=== PATIENT | female | born 1990 | race Caucasian/White ===

== ENCOUNTER 2019-04-06 15:47 | Observation (INO) | payer OTHER ==
[2019-04-06 17:32] LABS: BLOOD UREA NITROGEN,BUN 7 mg/dL (7.0-18.0); CARBON DIOXIDE,CO2 23.9 mmol/L (21.0-32.0); CHLORIDE,CL 101 mmol/L (98-107); GLUCOSE RANDOM 90 mg/dL (74-106); POTASSIUM,K 4.1 mmol/L (3.5-5.1); SODIUM,NA 136 mmol/L (136-145)
[2019-04-06] MEDS ORDERED: cefTRIAXone 1 GM in Lidocaine 1% 4 ML IM ONE (18:05)
[2019-04-06] MEDS ORDERED: cefTRIAXone 1 GM in Sodium Chloride 0.9% 50 ML IV ONE ×2 (19:05→19:30)
[2019-04-06] MEDS ORDERED: Sodium Chloride 0.9% 10 ML Syringe FLUSH PRN (19:12)
[2019-04-06] MEDS ORDERED: Sodium Chloride 0.9% 10 ML SDV IV PRN (19:12)
[2019-04-06] MEDS ORDERED: Sodium Chloride 0.9% 2.5 ML Syringe FLUSH PRN (19:12)
[2019-04-06] MEDS ORDERED: Sodium Chloride 0.9% 250 ML IV SCH (19:15)
== END 2019-04-06 21:08 | disposition home or self-care (01) ==
LOC: MW.OB 15:47
PROVIDERS: ADMIT Obstetrics & Gynecology; ATTEND Obstetrics & Gynecology
DX: O99.89 Other specified diseases and conditions complicating pregnancy, childbirth and the puerperium (principal); R50.9 Fever, unspecified; R10.13 Epigastric pain
CPT/HCPCS: 36415; 59025; 80048; 81001; 85025; 87086; 87804; J0696; J7050

== ENCOUNTER 2019-07-14 07:36 | Inpatient (IN) | payer OTHER ==
[2019-07-14] MEDS ORDERED: Sodium Chloride 0.9% 2.5 ML Syringe FLUSH PRN (09:47)
[2019-07-14] MEDS ORDERED: Misoprostol 200 MCG Tab PO PRN (09:47)
[2019-07-14] MEDS ORDERED: Nalbuphine 10 MG/1 ML Vial IVPUSH PRN (09:47)
[2019-07-14] MEDS ORDERED: Lidocaine 1% 50 ML MDV INJECT PRN (09:47)
[2019-07-14] MEDS ORDERED: Tranexamic Acid 1,000 MG in Sodium Chloride 0.9% 100 ML IV PRN (09:47)
[2019-07-14] MEDS ORDERED: Water For Irrigation,Sterile 1,000 ML Container IRR PRN (09:47)
[2019-07-14] MEDS ORDERED: Methylergonovine 0.2 MG/1 ML Amp IM PRN (09:47)
[2019-07-14] MEDS ORDERED: Sodium Chloride 0.9% 10 ML Syringe FLUSH PRN (09:47)
[2019-07-14] MEDS ORDERED: Sodium Chloride 0.9% 10 ML SDV IV PRN (09:47)
[2019-07-14] MEDS ORDERED: Butorphanol 1 MG/ML SDV IVPUSH PRN (09:47)
[2019-07-14] MEDS ORDERED: Carboprost Tromethamine 250 MCG/1 ML Amp IM PRN (09:47)
[2019-07-14] MEDS ORDERED: Oxytocin/0.9 % Sodium Chloride 30 UNIT/500 ML BAG IV SCH ×2 (10:00→20:30)
[2019-07-14 17:28] LABS: BLOOD UREA NITROGEN,BUN 9 mg/dL (7.0-18.0); CHLORIDE,CL 100 mmol/L (98-107); GLUCOSE RANDOM 104 mg/dL (74-106); POTASSIUM,K 3.6 mmol/L (3.5-5.1); SODIUM,NA 133 mmol/L (136-145)
[2019-07-14] MEDS: Lactated Ringers 1,000 ML IV SCH ×3 (18:35→20:12)
[2019-07-14] MEDS ORDERED: fentaNYL 100 MCG/2 ML SDV ONE (19:23)
[2019-07-14] MEDS ORDERED: Ropivacaine 0.2% PF 2 MG/ML 20 ML SDV ONE (19:23)
[2019-07-14] MEDS ORDERED: Ropivacaine HCl/PF 100 ML ONE (19:23)
--- NOTE | 2019-07-14 20:46 | PCM.PREANE ---
Preanesthetic Assessment - Procedure Proposed Procedure: RENÉE - Anesthesia/Transfusion/Family Hx Anesthesia History: Prior Anesthesia Without Reaction Family History of Anesthesia Reaction: No Transfusion History: No Prior Transfusion(s) Intubation History: Unknown - Review of Systems General: No Symptoms Pulmonary: No Symptoms Cardiovascular: No Symptoms Gastrointestinal: Other (REFLUX) Neurological: No Symptoms Other: Reports: None - Physical Assessment NPO Status Time: 19:00 (Clear Liquids) Height: 1.68 m Weight: 73.482 kg ASA Class: 2 Mental Status: Alert & Oriented x3 Airway Class: Mallampati = 2 Dentition: Reports: Normal Dentition Thyro-Mental Finger Breadths: 3 Mouth Opening Finger Breadths: 3 ROM/Head Extension: Full Lungs: Clear to Auscultation Cardiovascular: Regular Rate - Lab Values: Laboratory Last Values WBC 19.20 K/uL (4.0-11.0) H 07/14/19 16:58 RBC 4.84 M/uL (4.30-5.90) 07/14/19 16:58 Hgb 14.1 g/dL (12.0-16.0) 07/14/19 16:58 Hct 41.3 % (36.0-46.0) 07/14/19 16:58 MCV 85.3 fL (80.0-98.0) 07/14/19 16:58 MCH 29.1 pg (27.0-32.0) 07/14/19 16:58 MCHC 34.1 g/dL (31.0-37.0) 07/14/19 16:58 RDW Std Deviation 43.1 fl (28.0-62.0) 07/14/19 16:58 RDW Coeff of Celi 14 % (11.0-15.0) 07/14/19 16:58 Plt Count 148 K/uL (150-400) L 07/14/19 16:58 MPV 10.90 fL (7.40-12.00) 07/14/19 16:58 Neutrophils % (Manual) 87 % (48.0-80.0) H 07/14/19 16:58 Lymphocytes % (Manual) 9 % (16.0-40.0) L 07/14/19 16:58 Monocytes % (Manual) 4 % (0.0-15.0) 07/14/19 16:58 Nucleated RBC % 0.0 /100WBC 07/14/19 16:58 Absolute Seg Neuts 16.7 (1.4-5.7) H 07/14/19 16:58 Lymphocytes # (Manual) 1.7 (0.6-2.4) 07/14/19 16:58 Monocytes # (Manual) 0.8 (0.0-0.8) 07/14/19 16:58 Nucleated RBCs # 0 K/uL 07/14/19 10:15 Sodium 133 mmol/L (136-145) L 07/14/19 16:58 Potassium 3.6 mmol/L (3.5-5.1) 07/14/19 16:58 Chloride 100 mmol/L (98-107) 07/14/19 16:58 Carbon Dioxide 20.0 mmol/L (21.0-32.0) L 07/14/19 16:58 BUN 9 mg/dL (7.0-18.0) 07/14/19 16:58 Creatinine 0.7 mg/dL (0.6-1.0) 07/14/19 16:58 Est Cr Clr Drug Dosing 113.01 mL/min 07/14/19 16:58 Estimated GFR (MDRD) > 60.0 ml/min 07/14/19 16:58 Glucose 104 mg/dL (74-106) 07/14/19 16:58 Uric Acid 5.7 mg/dL (2.6-7.2) 07/14/19 16:58 Calcium 8.8 mg/dL (8.5-10.1) 07/14/19 16:58 Total Bilirubin 0.4 mg/dL (0.2-1.0) 07/14/19 16:58 AST 21 IU/L (15-37) 07/14/19 16:58 ALT 21 IU/L (14-63) 07/14/19 16:58 Alkaline Phosphatase 142 U/L (46-116) H 07/14/19 16:58 Total Protein 6.5 g/dL (6.4-8.2) 07/14/19 16:58 Albumin 2.9 g/dL (3.4-5.0) L 07/14/19 16:58 Globulin 3.6 g/dL (2.6-4.0) 07/14/19 16:58 Albumin/Globulin Ratio 0.8 (0.9-1.6) L 07/14/19 16:58 Membrane Rupture POSITIVE 07/14/19 08:15 Blood Type O NEGATIVE 07/14/19 10:15 Antibody Screen NEGATIVE 07/14/19 10:15 - Allergies Allergies/Adverse Reactions: Allergies Allergy/AdvReac Type Severity Reaction Status Date / Time Penicillins Allergy Other Verified 07/14/19 09:51 - Blood Blood Available: No Product(s) Available: None - Anesthesia Plan Pre-Op Medication Ordered: None - Acknowledgements Anesthesia Type Planned: Epidural Pt an Appropriate Candidate for the Planned Anesthesia: Yes Alternatives and Risks of Anesthesia Discussed w Pt/Guardian: Yes Pt/Guardian Understands and Agrees with Anesthesia Plan: Yes Additional Comments: Discussed. ? answered. Permit signed. Wishes to proceed. PreAnesthesia Questionnaire - Past Health History Medical/Surgical History: Denies Medical/Surgical History MANAGER TERMINAL History: Reports: Musculoskeletal History: Reports: Other (See Below) Other Musculoskeletal History: Torn ligiment in foot. Right knee dislocation - Past Surgical History HEENT Surgical History: Reports: Other (See Below) Other HEENT Surgeries/Procedures: tooth extraction - SUBSTANCE USE Smoking Status *Q: Former Smoker Tobacco Use Within Last Twelve Months: No Second Hand Smoke Exposure: No Recreational Drug Use History: No - CURRENT (IN HOUSE) MEDS Current Meds: Current Medications Butorphanol Tartrate (Stadol) 1 mg IVPUSH Q1H PRN PRN Reason: Pain Carboprost Tromethamine (Hemabate Ds) 250 mcg IM ASDIRECTED PRN PRN Reason: Post Hemorrhage Tranexamic Acid 1,000 mg/ (Sodium Chloride) 110 mls @ 660 mls/hr IV ONETIME PRN PRN Reason: Bleeding Lactated Ringer's (Ringers, Lactated) 1,000 mls @ 150 mls/hr IV ASDIRECTED FABY Last Admin: 07/14/19 20:12 Dose: 150 mls/hr Oxytocin/Sodium Chloride (Oxytocin 30 Unit/500 Ml-Ns) 30 unit in 500 mls @ 999 mls/hr IV TITRATE FABY Oxytocin/Sodium Chloride (Oxytocin 30 Unit/500 Ml-Ns) 30 unit in 500 mls @ 2 mls/hr IV TITRATE FABY; Protocol Last Infusion: 07/14/19 20:39 Dose: 4 munits/min, 4 mls/hr Lidocaine HCl (Xylocaine 1%) 50 ml INJECT ONETIME PRN PRN Reason: Laceration repair Methylergonovine Maleate (Methergine) 0.2 mg IM ASDIRECTED PRN PRN Reason: Post Hemorrhage Misoprostol (Cytotec) 200 mcg PO ONETIME PRN PRN Reason: Post Hemorrhage Nalbuphine HCl (Nubain) 10 mg IVPUSH Q1H PRN PRN Reason: Pain (severe 7-10) Sodium Chloride (Saline Flush) 10 ml FLUSH ASDIRECTED PRN PRN Reason: Keep Vein Open Sodium Chloride (Saline Flush) 2.5 ml FLUSH ASDIRECTED PRN PRN Reason: Keep Vein Open Sodium Chloride (Normal Saline) 10 ml IV ASDIRECTED PRN PRN Reason: IV Use Sterile Water (Sterile Water For Irrigation) 1,000 ml IRR ASDIRECTED PRN PRN Reason: delivery Discontinued Medications Fentanyl (Sublimaze) Confirm Administered Dose 100 mcg .ROUTE .STK-MED ONE Stop: 07/14/19 19:24 Ropivacaine (Naropin 0.2%) Confirm Administered Dose 100 mls @ as directed .ROUTE .STK-MED ONE Stop: 07/14/19 19:24 Ropivacaine (Naropin 0.2%) Confirm Administered Dose 20 ml .ROUTE .STK-MED ONE Stop: 07/14/19 19:24
--- NOTE | 2019-07-14 20:52 | PCM.SN.2 ---
- Free Text/Narrative Note: Requested for RENÉE on 40+3 in active labor. Chart reviewed, discussed, ? answered, permit signed, wishes to proceed. Epidural at L3-4 on first pass. Test dose NEGATIVE. Excellent analgesia post bolus. Placed on infusion/bolus. Tolerated well. No issues noted post.
--- NOTE | 2019-07-15 01:01 | PCM.SN.2 ---
- Free Text/Narrative Note: Excellent analgesia. Pump issues, line air malfxn. System reset and system flushed. Function resumed.
[2019-07-15] MEDS ORDERED: Ibuprofen 400 MG Tab PO PRN (01:24)
[2019-07-15] MEDS ORDERED: Bisacodyl 10 MG Supp RECTAL PRN (01:24)
[2019-07-15] MEDS ORDERED: Acetaminophen 500 MG Tab PO PRN ×2 (01:24)
[2019-07-15] MEDS ORDERED: Docusate Sodium 100 MG Cap PO PRN (01:24)
[2019-07-15] MEDS ORDERED: Witch Hazel Medicated Pads 40/Jar TOP PRN (01:24)
[2019-07-15] MEDS ORDERED: Aluminum Hydroxide/Magnesium Hydroxide/Simethicone Susp 30 ML Cup PO PRN (01:24)
[2019-07-15] MEDS ORDERED: oxyCODONE 5 MG Tab PO PRN (01:24)
[2019-07-15] MEDS ORDERED: Ondansetron 4 MG/2 ML SDV IVPUSH PRN (01:24)
[2019-07-15] MEDS ORDERED: Ibuprofen 800 MG Tab PO PRN (01:24)
[2019-07-15] MEDS ORDERED: Lanolin 100% Cream 7 GM Tube TOP PRN (01:24)
--- NOTE | 2019-07-15 01:30 | PCM.OPNOTE ---
- General Post-Op/Procedure Note Date of Surgery/Procedure: 07/15/19 Operative Procedure(s): /2nd MLL repaired Findings: Viable female APGARs 8, 8 weight pending. Spontaneous delivery intact placenta with 3V cord. Thick meconium stained amniotic fluid Pre Op Diagnosis: 40/4 week IUP. SROM Post-Op Diagnosis: Same Anesthesia Technique: Epidural EBL in mLs: 300 Complications: none known Condition: Good Free Text/Narrative:: Dictation [id number]
--- NOTE | 2019-07-15 02:02 | OR ---
SURGEON: Kaylin Meza M.D. DATE OF PROCEDURE: 07/15/2019 PREOPERATIVE DIAGNOSES: 1. 40 and 4-week intrauterine . 2. Spontaneous rupture of membranes. POSTOPERATIVE DIAGNOSES: 1. 40 and 4-week intrauterine . 2. Spontaneous rupture of membranes. PROCEDURES: 1. Spontaneous vaginal delivery. 2. Second-degree midline laceration repair. PRIMARY SURGEON: Kaylin Meza M.D. ANESTHESIA: Epidural. ESTIMATED BLOOD LOSS: 300 mL. COMPLICATIONS: None known. FINDINGS: Viable female. scores 8 at 1 minute and 8 at 5 minutes. Weight is pending. Spontaneous delivery, intact placenta, 3-vessel cord, thick meconium stained amniotic fluid. DISPOSITION: Infant nursery, mom in LDRP, stable. PROCEDURE DETAILS: Caitlin is a 29-year-old, G1, P0, at 40-3/7 weeks' gestational age in presentation on the morning of 07/14/2019, after spontaneous rupture of membranes. Clear fluid initially noted. She is group B beta strep negative. She was monitored throughout the morning and afternoon. When there was no evidence of active labor, she did agree to Pitocin augmentation by the early evening. We initiated this. Contractions became more regular. She became increasingly uncomfortable, underwent regional anesthesia in the form of epidural. I assumed care shortly after 6 p.m. heart tones 120s with variability. The patient underwent epidural, became more comfortable. Shortly thereafter was found to be 5 cm, and continued to progress nicely through the evening hours. Once complete, she began pushing efforts, pushed nicely to a +2 station. I was called for delivery. Upon my arrival, the patient was placed in modified dorsal lithotomy position, was prepped and draped using the aseptic manner. During her pushing efforts, it was noted that there was meconium-stained fluid. Therefore, Respiratory Therapy was also present for delivery. The patient continued with pushing efforts, pushed readily to a +4 station, followed by delivery of infant's head atraumatically and spontaneously followed by anterior shoulder, posterior shoulder, and remainder of the body without difficulty. The 's oropharynx and nares were bulb suctioned. The was handed off to her mother with attending nursing staff at the side. After a delay, cord was clamped x2 and cut. Cord arterial, cord venous, cord blood sampling obtained. Light pressure was applied. The placenta was delivered spontaneously intact. Vigorous fundal uterine massage was then applied. The uterus involuted nicely while 30 units of Pitocin was delivered in 500 mL of IV fluid. Upon inspection of cervix, vaginal sidewall, and perineum, there was found to be a second-degree midline laceration with first-degree bilateral sulci lacerations, repaired using 3-0 Vicryl in continuous running fashion, and the second degree in the usual fashion. Hemostasis appeared evident. The uterus did remain firm. Sponge count, instrument count, needle count was correct. The patient will remain in LDRP. to nursery. FELIPE / KALEN /[id number]
[2019-07-15] MEDS: Benzocaine/Menthol 20%-0.5% Spray 78 GM Cannister TOP PRN (02:58)
--- NOTE | 2019-07-15 07:47 | PCM48HPAN ---
Post Anesthesia Note - EVALUATION WITHIN 48HRS OF ANESTHETIC Vital Signs in Normal Range: Yes Patient Participated in Evaluation: Yes Respiratory Function Stable: Yes Airway Patent: Yes Cardiovascular Function Stable: Yes Hydration Status Stable: Yes Pain Control Satisfactory: Yes Nausea and Vomiting Control Satisfactory: Yes Mental Status Recovered: Yes - COMMENTS/OBSERVATIONS Free Text/Narrative:: Doing well. No problems noted post.
--- NOTE | 2019-07-16 06:20 | PCM.PNPP ---
- General Info Date of Service: 07/16/19 Subjective Update: 29yo P1 s/p PPD1 Functional Status: Reports: Pain Controlled, Tolerating Diet, Ambulating, Urinating - Review of Systems General: Reports: No Symptoms HEENT: Reports: No Symptoms Pulmonary: Reports: No Symptoms Cardiovascular: Reports: No Symptoms Gastrointestinal: Reports: No Symptoms Genitourinary: Reports: No Symptoms Musculoskeletal: Reports: No Symptoms Skin: Reports: No Symptoms Neurological: Reports: No Symptoms Psychiatric: Reports: No Symptoms - General Info Date of Service: 07/16/19 - Patient Data Vital Signs - Most Recent: Last Vital Signs Temp 36.2 C 07/16/19 05:02 Pulse 74 07/16/19 05:02 Resp 17 07/16/19 05:02 BP 131/85 07/16/19 05:02 Pulse Ox 96 07/16/19 05:02 Weight - Most Recent: 73.482 kg I&O - Last 24 Hours: Intake & Output 07/15/19 07/15/19 07/16/19 14:59 22:59 06:59 Intake Total 2 Balance 2 Lab Results - Last 24 Hours: Laboratory Results - last 24 hr 07/15/19 Range/Units 02:08 Screen NEGATIVE (NEGATIVE) RhIG Candidate? YES Rhogam Indicated YES, BABY RH POS H Med Orders - Current: Current Medications Acetaminophen (Tylenol Extra Strength) 500 mg PO Q4H PRN PRN Reason: Pain Acetaminophen (Tylenol Extra Strength) 1,000 mg PO Q4H PRN PRN Reason: Pain Al Hydroxide/Mg Hydroxide (Mag-Al Plus) 30 ml PO Q8H PRN PRN Reason: Heartburn Benzocaine/Menthol (Dermoplast Pain Relief 20%-0.5% [place]) 78 gm TOP ASDIRECTED PRN PRN Reason: Perineal Comfort Measure Last Admin: 07/15/19 02:58 Dose: 1 can Bisacodyl (Dulcolax) 10 mg RECTAL ONETIME PRN PRN Reason: Constipation Carboprost Tromethamine (Hemabate Ds) 250 mcg IM ASDIRECTED PRN PRN Reason: Post Hemorrhage Docusate Sodium (Colace) 100 mg PO BID PRN PRN Reason: Constipation Last Admin: 07/16/19 04:27 Dose: 100 mg Emollient Ointment (Lansinoh Hpa) 0 gm TOP ASDIRECTED PRN PRN Reason: Sore Nipples Last Admin: 07/15/19 02:57 Dose: 1 tub Tranexamic Acid 1,000 mg/ (Sodium Chloride) 110 mls @ 660 mls/hr IV ONETIME PRN PRN Reason: Bleeding Lactated Ringer's (Ringers, Lactated) 1,000 mls @ 150 mls/hr IV ASDIRECTED FABY Last Admin: 07/14/19 20:12 Dose: 150 mls/hr Oxytocin/Sodium Chloride (Oxytocin 30 Unit/500 Ml-Ns) 30 unit in 500 mls @ 999 mls/hr IV TITRATE FABY Oxytocin/Sodium Chloride (Oxytocin 30 Unit/500 Ml-Ns) 30 unit in 500 mls @ 2 mls/hr IV TITRATE FABY; Protocol Last Infusion: 07/14/19 21:30 Dose: 6 munits/min, 6 mls/hr Ibuprofen (Motrin) 400 mg PO Q4H PRN PRN Reason: Pain Ibuprofen (Motrin) 800 mg PO Q6H PRN PRN Reason: Pain Last Admin: 07/15/19 02:58 Dose: 800 mg Lidocaine HCl (Xylocaine 1%) 50 ml INJECT ONETIME PRN PRN Reason: Laceration repair Methylergonovine Maleate (Methergine) 0.2 mg IM ASDIRECTED PRN PRN Reason: Post Hemorrhage Ondansetron HCl (Zofran) 4 mg IVPUSH Q6H PRN PRN Reason: Nausea/Vomiting Oxycodone HCl (Oxycodone) 5 mg PO Q2H PRN PRN Reason: Pain Sodium Chloride (Saline Flush) 10 ml FLUSH ASDIRECTED PRN PRN Reason: Keep Vein Open Sodium Chloride (Saline Flush) 2.5 ml FLUSH ASDIRECTED PRN PRN Reason: Keep Vein Open Sodium Chloride (Normal Saline) 10 ml IV ASDIRECTED PRN PRN Reason: IV Use Sterile Water (Sterile Water For Irrigation) 1,000 ml IRR ASDIRECTED PRN PRN Reason: delivery Last Admin: 07/15/19 03:00 Dose: 1,000 ml Witch Negra (Tucks) 1 pad TOP ASDIRECTED PRN PRN Reason: comfort care Last Admin: 07/15/19 02:58 Dose: 1 tub Discontinued Medications Butorphanol Tartrate (Stadol) 1 mg IVPUSH Q1H PRN PRN Reason: Pain Fentanyl (Sublimaze) Confirm Administered Dose 100 mcg .ROUTE .STK-MED ONE Stop: 07/14/19 19:24 Ropivacaine (Naropin 0.2%) Confirm Administered Dose 100 mls @ as directed .ROUTE .STK-MED ONE Stop: 07/14/19 19:24 Misoprostol (Cytotec) 200 mcg PO ONETIME PRN PRN Reason: Post Hemorrhage Nalbuphine HCl (Nubain) 10 mg IVPUSH Q1H PRN PRN Reason: Pain (severe 7-10) Ropivacaine (Naropin 0.2%) Confirm Administered Dose 20 ml .ROUTE .STK-MED ONE Stop: 07/14/19 19:24 - Infant Interaction Support Person: - Recovery Exam Fundal Tone: Firm Fundal Level: 2 Fingerbreadths Below Umbilicus Fundal Placement: Midline Lochia Amount: Scant Lochia Color: Rubra/Red Perineum Description: Intact, Minimal Bruising/Swelling Episiotomy/Laceration: Approximated Bladder Status: Voiding - Exam General: Alert HEENT: Pupils Equal Neck: Supple Lungs: Clear to Auscultation Cardiovascular: Regular Rate, Regular Rhythm GI/Abdominal Exam: Normal Bowel Sounds Extremities: Normal Inspection Neurological: No New Focal Deficit Psy/Mental Status: Alert - Problem List & Annotations (1) Vaginal delivery SNOMED Code(s): 461012137 Code(s): O80 - ENCOUNTER FOR FULL-TERM UNCOMPLICATED DELIVERY Status: Acute Current Visit: Yes - Problem List Review Problem List Initiated/Reviewed/Updated: Yes - My Orders Last 24 Hours: My Active Orders 07/16/19 05:51 CBC WITH MANUAL DIFF [HEME] Routine - Assessment Assessment:: 29yo P1 s/p PPD 1 , normal lochia , - Plan Plan:: Routine Discharge home today
[2019-07-16] MEDS: Benzocaine/Menthol 20%-0.5% Spray 78 GM Cannister TOP PRN (09:46)
== END 2019-07-16 11:10 | disposition home or self-care (01) | DRG 807 ==
LOC: MW.OBCHECK 07:36 → MW.OB 07:37 → MW.OBCHECK 08:50 → OBSVTOIN 07-15 00:58 → MW.OB 07-15 06:00
PROVIDERS: ADMIT Obstetrics & Gynecology; ATTEND Obstetrics & Gynecology
PROC: 10E0XZZ Delivery of Products of Conception, External Approach (ICD-10-PCS; principal; 2019-07-15)
PROC: 0KQM0ZZ Repair Perineum Muscle, Open Approach (ICD-10-PCS; 2019-07-15)
PROC: 3E0R3BZ Introduction of Anesthetic Agent into Spinal Canal, Percutaneous Approach (ICD-10-PCS; 2019-07-15)
PROC: 3E0234Z Introduction of Serum, Toxoid and Vaccine into Muscle, Percutaneous Approach (ICD-10-PCS; 2019-07-15)
PROC: 3E033VJ Introduction of Other Hormone into Peripheral Vein, Percutaneous Approach (ICD-10-PCS; 2019-07-15)
DX: O48.0 Post-term pregnancy (principal); Z37.0 Single live birth; O77.0 Labor and delivery complicated by meconium in amniotic fluid; O70.1 Second degree perineal laceration during delivery; Z3A.40 40 weeks gestation of pregnancy; Z87.891 Personal history of nicotine dependence; Z79.899 Other long term (current) drug therapy; Z88.0 Allergy status to penicillin; O26.893 Other specified pregnancy related conditions, third trimester; Z67.41 Type O blood, Rh negative
CPT/HCPCS: 01967; 36415; 36430; 59025; 59409; 80053; 81001; 82570; 82803; 84112; 84156; 84550; 85007; 85027; 85460; 86592; 86593; 86850; 86900; 86901; A9270-GY; J2590; J2792; J7120